=== PATIENT | male | born 1980 | race African-American/Black ===

== ENCOUNTER 2021-12-02 15:16 | Emergency (ER) | payer MEDICARE ==
[~2021-12-02] VITALS: Ht 170.2 cm; Wt 100.0 kg
[2021-12-02] VITALS (14 sets, daily range): BP systolic 126–200; BP diastolic 46–88
[2021-12-02 17:13] LABS: HEMATOCRIT 23.2 % (39.0-50.0); HEMOGLOBIN 7.2 g/dl (14.0-18.0); IMMATURE GRANULOCYTES 0.3 % (0.0-5.0); MEAN CELL VOLUME 85.9 fL CALC (80.0-100.0); MEAN CORPUSCULAR HGB 26.7 pG CALC (26.0-32.0); NEUT# 7.27 thou/uL (1.82-7.42); RED BLOOD COUNT 2.7 mill/uL (4.70-6.10)
[2021-12-02 17:24] LABS: ALBUMIN 3.9 g/dL (3.2-5.0); BILIRUBIN, TOTAL 0.4 mg/dL (0.0-1.4); C-REACTIVE PROTEIN 6.2 mg/dL (0-0.9); POTASSIUM 4.5 mmol/l (3.5-5.1); TOTAL PROTEIN 8.1 g/dL (6.3-8.2)
[2021-12-02 17:38] LABS: CREATININE 7.8 mg/dL (0.7-1.3)
== END 2021-12-02 23:50 | disposition short-term general hospital (02) ==
LOC: ED 15:16
PROVIDERS: Nurse Practitioner
DX: E11.52 Type 2 diabetes mellitus with diabetic peripheral angiopathy with gangrene (principal); I96 Gangrene, not elsewhere classified; E11.22 Type 2 diabetes mellitus with diabetic chronic kidney disease; I12.0 Hypertensive chronic kidney disease with stage 5 chronic kidney disease or end stage renal disease; N18.6 End stage renal disease; E78.5 Hyperlipidemia, unspecified; Z99.2 Dependence on renal dialysis; Z89.512 Acquired absence of left leg below knee
CPT/HCPCS: J1644